=== PATIENT | male | born 1980 | race Caucasian/White ===

== ENCOUNTER 2020-01-14 15:40 | Emergency (ER) | payer OTHER ==
[~2020-01-14] VITALS: Ht 172.7 cm; Wt 90.0 kg
[2020-01-14 16:46] LABS: BASOPHILS % (AUTO) 0.8 % (0-1); EOSINOPHILS % (AUTO) 0.6 % (0-6); HEMATOCRIT 46.6 % (42.0-52.0); HEMOGLOBIN 16.1 g/dl (14.0-17.9); LYMPHOCYTES # (AUTO) 3.1 X10'3 (1.1-4.8); LYMPHOCYTES % (AUTO) 58.6 % (21-51); MEAN CORPUSCULAR HEMOGLOBIN 33.1 PG (27.0-31.0); MEAN CORPUSCULAR HGB CONC 34.4 g/dL (33.0-36.5); MEAN CORPUSCULAR VOLUME 96.1 FL (78-98); MEAN PLATELET VOLUME 8.1 FL (7.4-10.4); MONOCYTES # (AUTO) 0.4 X10'3 (0-0.9); MONOCYTES % (AUTO) 7.2 % (2-12); NEUTROPHILS # (AUTO) 1.8 X10'3 (1.8-7.7); NEUTROPHILS % (AUTO) 32.8 % (42-75); PLATELET COUNT 225 X10'3 (140-440); RED BLOOD COUNT 4.85 X10'6 (4.70-6.10); RED CELL DISTRIBUTION WIDTH 13.8 % (11.5-14.5); WHITE BLOOD COUNT 5.4 X10'3 (4.5-11.0)
[2020-01-14 16:58] LABS: ALANINE AMINOTRANSFERASE 132 U/L (12-78); ALBUMIN 4.3 G/DL (3.4-5.0); ALBUMIN/GLOBULIN RATIO 1.1 (1.1-1.5); ALKALINE PHOSPHATASE 57 IU/L (46-116); ANION GAP 13 (8-16); ASPARTATE AMINO TRANSFERASE 106 U/L (10-37); BILIRUBIN,TOTAL 0.4 MG/DL (0.1-1.0); BLOOD UREA NITROGEN 9 MG/DL (7-18); BUN/CREATININE RATIO 8.7 (5.4-32.0); CHLORIDE 106 MMOL/L (99-107); CREATININE 1.03 MG/DL (0.60-1.10); ETHANOL 0.288 GM/DL (0.0-0.010); GLUCOSE 143 MG/DL (70-104); SODIUM 142 MMOL/L (135-145); TOTAL CARBON DIOXIDE 23.5 MMOL/L (24-32); TOTAL PROTEIN 8.2 G/DL (6.4-8.2); eGFR 80 ML/MIN
[2020-01-14] MEDS ORDERED: nicotine 21mg patch - 24 hr TD ONE (17:00)
[2020-01-14] MEDS ORDERED: chlordiazePOXIDE 25mg capsule PO ONE ×2 (17:05→17:10)
[2020-01-14] MEDS ORDERED: potassium Cl 20 mEq SR tablet PO STA (17:05)
[2020-01-14] MEDS ORDERED: GABA-530 PO (17:37)
[2020-01-14] MEDS ORDERED: AMLO-94 PO (17:37)
[2020-01-14] MEDS ORDERED: FOLI0.4T2 PO (17:37)
[2020-01-14] MEDS ORDERED: DOXE10CA2 PO (17:37)
[2020-01-14] MEDS ORDERED: MELA2.5T PO (17:37)
[2020-01-14 18:00] LABS: URINE AMPHETAMINE SCREEN NEGATIVE (Neg); URINE BARBITUATE SCREEN NEGATIVE (Neg); URINE BENZODIAZEPINES SCREEN NEGATIVE (Neg); URINE CANNABINOID SCREEN NEGATIVE (Neg); URINE COCAINE SCREEN NEGATIVE (Neg); URINE METHADONE SCREEN NEGATIVE (Neg); URINE OPIATE SCREEN NEGATIVE (Neg); URINE PHENCYCLIDINE SCREEN NEGATIVE (Neg)
[2020-01-14 18:04] LABS: PLATELET ESTIMATE NORMAL; TOTAL CELLS COUNTED 100
[2020-01-14] MEDS ORDERED: hydrOXYzine 25 MG tablet PO ONE (20:00)
--- NOTE | 2020-01-14 20:30 | NUR ---
Pt resting quietly, respirations normal, no s/s of distress.
--- NOTE | 2020-01-14 20:45 | NUR ---
Packet sent to [facility]. [facility] will eval in the am due to pt's etoh level.
[2020-01-14] MEDS ORDERED: doxepin 10mg capsule PO SCH (21:00)
[2020-01-14] MEDS ORDERED: Melatonin 3mg tablet PO SCH (21:00)
[2020-01-14] MEDS ORDERED: traZODone 50mg tablet PO SCH (21:30)
--- NOTE | 2020-01-15 06:40 | NUR ---
Nursing Note: Pt laying in bed with eyes closed, no S&S of distress, RR even and unlabored, will continue to monitor.
--- NOTE | 2020-01-15 07:09 | NUR ---
Nursing Note: Discussed pt with Dr. Hu, received order for one-time dose of multivitamin and thiamine. If pt shows signs of alcohol withdrawal, contact MD for further orders. Will continue to monitor.
--- NOTE | 2020-01-15 07:45 | NUR ---
Nursing Note: Pt reports anxiety 03/10, BP 160/109, sweating, feeling of something crawling on skin and seeing spots. Notified Dr. Hu. Pt to be placed on ETOH protocol. Pt pleasant and cooperative. He reports fewer feelings of SI. He stated that he drinks 750 mL of whiskey per day and has been drinking heavily for two weeks. Will continue to monitor.
[2020-01-15] MEDS ORDERED: thiamine 100mg tablet PO ONE (08:00)
[2020-01-15] MEDS ORDERED: amLODIPine 5mg tablet PO SCH (08:00)
[2020-01-15] MEDS ORDERED: gabapentin 100mg capsule PO SCH (08:00)
[2020-01-15] MEDS ORDERED: multivitamins, therapeutics tablet PO ONE (08:00)
[2020-01-15] MEDS ORDERED: lisinopril 20mg tablet PO SCH (08:00)
[2020-01-15] MEDS ORDERED: folic acid 0.4mg tablet PO SCH (08:00)
[2020-01-15] MEDS ORDERED: chlordiazePOXIDE 25mg capsule PO PRN (08:05)
--- NOTE | 2020-01-15 09:30 | NUR ---
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 Pt cooperative. No S&S of distress, will continue to monitor.
--- NOTE | 2020-01-15 10:31 | NUR ---
Nursing Note: Pt laying in bed, RR even and unlabored, no S&S of distress, will continue to monitor.
--- NOTE | 2020-01-15 11:06 | NUR ---
assumed care while RN is on her 15 min break
--- NOTE | 2020-01-15 11:32 | NUR ---
Nursing Note: Pt laying in bed. He denies SI and states he has a safety plan. Pt states he has support people he can call. Discussed his ETOH use and risk of withdrawal if he stops drinking. Pt indicates he understands risks and will follow-up with medical care as needed.
--- NOTE | 2020-01-15 12:16 | NUR ---
Discharge note: Pt discharged at 12:16 to home. Escorted out by JESSICA Galeano. Pt denies SI and contracts for safety. He reports he will follow up with [facility] for his psychiatric and ETOH problems. Pt cautioned not to drive subsequent to Librium administered at 0830. Pt voiced understanding of the risks. Pt offered a cab, but he stated he would call [employer] for a ride home. Discharge instructions given and pt given the opportunity to ask questions. All possessions sent with pt. No S&S of distress, pt's symptoms improved since admission.
[2020-01-15 12:20] VITALS: BP 150/97
== END 2020-01-15 12:15 | disposition home or self-care (01) ==
LOC: ER 15:40
DX: F32.9 Major depressive disorder, single episode, unspecified (principal); R45.851 Suicidal ideations; F10.239 Alcohol dependence with withdrawal, unspecified; F12.90 Cannabis use, unspecified, uncomplicated; I10 Essential (primary) hypertension; Z87.891 Personal history of nicotine dependence; Z88.6 Allergy status to analgesic agent; Z79.899 Other long term (current) drug therapy; Z87.820 Personal history of traumatic brain injury; Y90.9 Presence of alcohol in blood, level not specified
CPT/HCPCS: 80053; 80305; 80320; 85025; 99285; Q0177; 99284